=== PATIENT | male | born 1995 | race African-American/Black ===

== ENCOUNTER 2019-04-07 23:56 | Inpatient (IN) ==
[2019-04-08] MEDS ORDERED: EPINEPHrine INJ 1 MG/ML AMP ONE ×2 (00:04→01:08)
[2019-04-08] MEDS ORDERED: SODIUM CHLORIDE 0.9% 1000ML 1,000 ML IV ONE ×2 (00:08→02:16)
[2019-04-08] MEDS ORDERED: DiphenhydrAMINE HCL 50 MG/ML VIAL IV STA ×2 (00:08→01:33)
[2019-04-08] MEDS ORDERED: methylPREDNISolone 125 MG/2 ML VIAL IV STA (00:08)
[2019-04-08] MEDS ORDERED: FAMOTIDINE 20MG/5ML IV PUSH IV STA (00:08)
[2019-04-08] MEDS ORDERED: EPINEPHrine INJ 1 MG/ML AMP IM STA (01:08)
[2019-04-08 01:23] LABS: Basophils # (auto) 0.01 K/uL (0-0.2); Basophils % (auto) 0.1 %; Eosinophils % (auto) 0.8 %; Hematocrit (blood only) 41.7 % (42-52); Hemoglobin 14.1 g/dL (14.0-18.0); Immature Granulocytes # (auto) 0.02 K/uL (0.00-0.02); Immature Granulocytes % (auto) 0.2 %; Lymphocytes # (auto) 3.65 K/uL (1.2-3.4); Lymphocytes % (auto) 30.6 %; Mean Corpuscular Hemoglobin 27.6 pg (25-34); Mean Corpuscular Hgb Conc 33.8 g/dL (32-36); Mean Corpuscular Volume 81.6 fL (80-100); Mean Platelet Volume 10.5 fL (7.4-10.4); Monocytes # (auto) 1.09 K/uL (0.11-0.59); Monocytes % (auto) 9.2 %; Neutrophils # (auto) 7.04 K/uL (1.4-6.5); Neutrophils % (auto) 59.1 %; Platelet Count 280 K/uL (130-400); RDW Coefficient of Variation 14.5 % (11.5-14.5); Red Blood Count 5.11 M/uL (4.7-6.1); White Blood Count 11.91 K/uL (4.8-10.8)
[2019-04-08 01:46] LABS: Albumin Level 3.5 gm/dl (3.4-5.0); BUN Creatinine Ratio 12.1 (10-20); Calcium 8.2 mg/dl (8.5-10.1); Creatinine Clr Calc Pharmacy 117.8 ml/min; Est GFR (African American) 91.9; Est GFR (Non-African American) 79.3
[2019-04-08 01:48] LABS: Albumin Globulin Ratio 0.9 (0.9-2); Bilirubin,Total 0.4 mg/dl (0.2-1); Globulin 3.9 gm/dl (2.5-4.0); Total Protein 7.4 gm/dl (6.4-8.2)
--- NOTE | 2019-04-08 03:28 | History & Physical Report ---
Date of Service April 08, 2019 Assessment & Plan (1) Anaphylaxis: Patient with what appears to be anaphylactic reaction, trigger unknown. No prior history of allergic reaction. No new medications, dietary items or detergents. Patient hemodynamically stable at present, had one episode of low blood pressure in the ER which improved with IVF. No respiratory compromise. No evidence of airway edema. -Admit to PCU -Closely monitor respiratory status and hemodynamics -Pepcid 20mg q 6 hours -Benadryl 50mg po q 6 hours -Prednisone 40mg po daily -IVF NSS at 125mL/hr -Epinephrine PRN -Patient may benefit from followup with Allergy/Immunology on outpatient basis F/E/N - NSS at 125mL/hr, monitor electrolytes and replete as needed, will give Kdur 60 mEq PO x 1 now and repeat labs, Regular diet as tolerated Ppx - Pepcid, SCDs Code - Full Dispo - Admit to PCU Present on Admission?: Yes History of Present Illness Chief Complaint: allergic reaction Primary Care Provider: NO PCP Rai Pickett is a 23yo male presenting with anaphylactic reaction. Patient is from [place], currently in [place] visiting his girlfriend. He arrived this evening by car and was in his usual state of health until this evening when he developed severe itching. He was laying in bed with his girlfriend and he started itching his head then his whole body. His girlfriend noticed that his eyes got red and his face became swollen. He took a Benadryl and a shower prior to arrival. He did complain of some throat tightness as well. On arrival to the hospital he was found to be afebrile, tachycardic, RR of 25. He had an isolated episode of hypotension at 83/37 which improved with IVF. ER Course: Benadryl, Pepcid, Solumedrol, NSS, Epinephrin 0.5mg IM x 2 Allergies Allergy/AdvReac Type Severity Reaction Status Date / Time No Known Allergies Allergy Verified 04/08/19 00:22 Home Medications Home Medications Medication Instructions Recorded Confirmed Type No Known Home Medications 04/08/19 04/08/19 History Past Med/Surg History Medical History Migraine Surgical History History of brain surgery shunt placement Family History Other Family history of allergies in brother Social History Feels Safe at Home: Yes Smoking Status: Current some day smoker Hx Alcohol Use: Yes Hx Substance Use: No Review of Systems Review of Systems: All systems reviewed & are unremarkable except as noted in HPI & below Physical Exam Physical Exam: General: patient resting comfortably, NAD, non-toxic in appearance, AA&O x 4 Skin: warm, dry, intact, mild periorbital and facial edema HEENT: NC/AT, PERRL, EOMI, anicteric sclera, conjunctiva without injection, external ear normal to inspection and nontender, nares patent, moist mucus membranes, dentition intact, no oropharyngeal lesions, neck supple, trachea midline, no LAD, no thyromegaly, no JVD, no swelling of tongue or oral structures Heart: +S1/S2, regular, tachycardic, no m/r/g Lungs: equal air entry bilaterally, no rales/rhonchi/wheezes, no stridor Abd: +BS, soft, NT/ND, no masses/organomegaly/ascites Ext: warm, 2+ pulses in UE/LE bilaterally, no clubbing/cyanosis or edema Neuro: nonfocal, patient AA&O x 4, speech intact, no facial droop, moving all extremities on command with equal strength 5/5 Results & Data Vital Signs (Past 12 Hours) Vital Signs Temp Pulse Pulse Resp BP BP Pulse Ox 04/08/19 03:01 107 H 16 106/40 L 97 04/08/19 02:30 115 H 25 H 161/62 H 97 04/08/19 02:02 101 H 27 H 04/08/19 02:01 110 H 31 H 83/37 L 92 04/08/19 02:00 104 H 26 H 95 04/08/19 01:34 101 H 20 97 04/08/19 01:33 103 H 24 155/84 H 97 04/08/19 01:00 107 H 30 H 98 04/08/19 00:16 115 H 20 130/85 97 04/08/19 00:11 104 H 21 96 04/07/19 23:57 36.7 C 112 H 18 149/80 H 94 Laboratory Results Lab Results 04/08/19 04/08/19 Range/Units 01:16 01:16 WBC 11.91 H (4.8-10.8) K/uL RBC 5.11 (4.7-6.1) M/uL Hgb 14.1 (14.0-18.0) g/dL Hct 41.7 L (42-52) % MCV 81.6 (80-100) fL MCH 27.6 (25-34) pg MCHC 33.8 (32-36) g/dL RDW Std Deviation 43.0 (36.4-46.3) fL RDW Coeff of Jack 14.5 (11.5-14.5) % Plt Count 280 (130-400) K/uL MPV 10.5 H (7.4-10.4) fL Immature Gran % (Auto) 0.2 % Neut % (Auto) 59.1 % Lymph % (Auto) 30.6 % [place] % (Auto) 9.2 % Eos % (Auto) 0.8 % Baso % (Auto) 0.1 % Immature Gran # (Auto) 0.02 (0.00-0.02) K/uL Neut # (Auto) 7.04 H (1.4-6.5) K/uL Lymph # (Auto) 3.65 H (1.2-3.4) K/uL [place] # (Auto) 1.09 H (0.11-0.59) K/uL Eos # (Auto) 0.10 (0-0.5) K/uL Baso # (Auto) 0.01 (0-0.2) K/uL Sodium 141 (136-145) mmol/L Potassium 3.0 L (3.5-5.1) mmol/L Chloride 107 (98-107) mmol/L Carbon Dioxide 22 (21-32) mmol/L Anion Gap 12.0 H (3-11) BUN 15 (7-18) mg/dl Creatinine 1.26 (0.6-1.4) mg/dl Est Cr Clr Drug Dosing 117.8 ml/min Est GFR ( Amer) 91.9 Est GFR (Non-Af Amer) 79.3 BUN/Creatinine Ratio 12.1 (10-20) Glucose 162 H (70-99) mg/dl Calcium 8.2 L (8.5-10.1) mg/dl Total Bilirubin 0.4 (0.2-1) mg/dl AST 16 (15-37) U/L ALT 30 (12-78) U/L Alkaline Phosphatase 97 (45-117) U/L Total Protein 7.4 (6.4-8.2) gm/dl Albumin 3.5 (3.4-5.0) gm/dl Globulin 3.9 (2.5-4.0) gm/dl Albumin/Globulin Ratio 0.9 (0.9-2) Code Status & VTE Plan Code Status FULL VTE Prophylaxis Plan VTE Prophylaxis will be ordered: Yes PG Care Time/CCT Total # of Minutes Spent Total Time Spent with Patient: Total time spent is greater than 50% in coordination of care (as documented) at patient's floor/unit and/or counseling patient: (1) Anaphylaxis Encounter type: initial encounter Qualified Code(s): T78.2XXA - Anaphylactic shock, unspecified, initial encounter
[2019-04-08] MEDS ORDERED: POLYETHYLENE (MIRALAX) 17 GM PACK PO PRN (03:59)
[2019-04-08] MEDS ORDERED: ONDANSETRON INJ 2 MG/ML 2 ML VIAL IV PRN (03:59)
[2019-04-08] MEDS ORDERED: ALUMINUM/MAGNESIUM SUSP 30 ML UDC PO PRN (03:59)
[2019-04-08] MEDS ORDERED: EPINEPHRINE ADULT AUTO-INJECT 0.3 MG SYR IM PRN (03:59)
[2019-04-08] MEDS ORDERED: SODIUM CHLORIDE 0.9% 1000ML 1,000 ML IV SCH (03:59)
[2019-04-08] MEDS ORDERED: MAGNESIUM HYDROXIDE SUSP 30 ML UDC PO PRN (03:59)
[2019-04-08] MEDS ORDERED: ACETAMINOPHEN 325 MG TAB PO PRN (03:59)
--- NOTE | 2019-04-08 04:17 | Emergency Department Note ---
Entered by Jermain Lemus acting as a scribe for ED Provider Note Name: Rai Pickett Age: 23, male Arrives Via: Walk in Informant: Patient CC: Allergic Reaction HPI: The patient is a 23 year old male who presents to the emergency department with complaints of a constant allergic reaction beginning 20 minutes ago. The patient states that he started having an allergic reaction 20 minutes ago while he was having sex. He notes that he was not using a condom or any lubricant. He reports that his face is swollen and he states that he is having some mild difficulty breathing. The patient states that he has not had any allergic reactions in the past, but he reports that his brother is allergic to a lot of things. He denies any CP and leg swelling. The patient states that he took Benadryl prior to arrival. He notes that he had chicken for dinner, which he reports did not have anything unusual on it. The patient that he has a history of brain surgery. ROS: See above HPI for pertinent positives & negatives. A total of 10 systems reviewed and were otherwise negative. Past Medical History: None Past Surgical History: Brain surgery Family History: History of allergies in brother Social History: Never smoker Home Medications: None Allergies: None Physical: Vitals: BP 130/85, Pulse 115, Resp 20, Temp 98.1 F, O2 Sat 97 Exam: GENERAL: Patient is anxious appearing and in mild distress. EYES: No scleral icterus, unremarkable pupils. ENT: Mucous membranes moist, no nasal congestion. Edema of periorbital region, cheeks, and lips. No significant oropharyngeal swelling appreciated, though there is some erythema. NECK: No masses appreciated, no meningismus, trachea is midline. RESPIRATORY: No dyspnea. Equal bilaterally. no rhonchi. Mild wheezing in all lung jordan. CARDIOVASCULAR: Regular rhythm and mildly tachycardic. No murmurs, rubs, gallops appreciated. GASTROINTESTINAL: Abdomen soft, non-tender, no peritonitis. Bowel sounds positive. No masses appreciated. BACK: No midline tenderness, no CVA tenderness EXTREMITIES: Normal motion all extremities, no cyanosis, no edema. NEUROLOGIC: Alert and oriented, no acute motor or sensory deficits, no focal weakness, cranial nerves grossly intact. SKIN: No jaundice, no diaphoresis. Diffuse hives and urticaria of the body. ED Course: Prior Medical Record, Triage/Nursing Notes, Medications, Allergies reviewed by 0004: The patient was evaluated in room A2. A complete history and physical exam was performed. 0006: I spoke to the patient's mother on the phone. 0033: I reevaluated and updated the patient. He is vastly improved. He still has some mild edema around his eyes, but he had no further erythema. His breathing is comfortable and he is not in any distress. 0106: I rechecked the patient. He is becoming itchy and developing diffuse erythema and hives. He is developing increasing tachycardia. There is no change in his facial swelling. 0133: I reevaluated and updated the patient. His rash has improved, but he notes that he is still itching badly all over. 0216: I rechecked the patient. He is feeling better and is sleepy. He is moderately diaphoretic and moderately hypotensive, but he denies any symptoms. A normal saline bolus was given. 0221: The hospitalist was paged. 0249: Upon reevaluation, the patient is stable. I discussed the findings and the treatment plan with the patient. He expresses agreement and understanding. I spoke with [place]. Chew of [place] [facility]. The patient will be evaluated for further management. Vital Signs: reviewed and remarkable for HTN, tachy Labs: Reviewed and remarkable for mild hypokalemia Interventions: saline lock, epi 0.5mg IM x 2, benadryl 50mg IV x 2, Solu-Medrol 125mg IV, Pepcid 20mg IV, NSS Bolus 1 L IV x 2 Consults: 0249: I reviewed the patient's case with Dr. Chew - Hospitalist, [facility]. She will evaluate the patient for further management. Blood pressure: Elevated - Will be monitored by hospitalist Disposition: Hospitalization Differentials: Differential: Allergic Reaction, Urticaria, Anaphylaxis, Matson- Jared Syndrome, Toxic Epidermal Necrolysis, Erythema Multiforme, Cellulitis, amongst other etiologies Entertained. Medical Decision Making: Pleasant 23 yr old male with anaphylaxis with unknown cause arrives with facial swelling, wheezing and diffuse hives. Given IM epi on arrival and then benadryl/pepcid/solumedrol. Initially doing well though within an hour hives returning and some worsening thus went ahead with repeat Epi. As still itching given another dose Benadryl as his weight could tolerate and awake. He was given fluid bolus a bit afterwards as mild hypotension likely secondary to benadryl/somnolence rather than anaphylaxis, but regardless responded well to fluids and no further epi given. Labs with mild hypoK and the WBC mild elevation consistent with situation. With need for repetitive dosing epi, brief hypotension I feel that he likely will need prolonged monitored and thus hospitalist consulted. Patient in stable condition at time of their evaluation. Impression: Anaphylaxis Critical Care: I have personally spent greater than 35 minutes of critical care time in the direct management of this patient. Anaphylaxis requiring multiple doses Epinephrine and resus. This was a life/limb threatening event. This includes time spent evaluating patient, direct bedside care, chart review, placing orders, interpretation of diagnostic studies, discussion with consultants, patient, and family members, as well as other required patient management activities. This 35 minutes is in excess of all separately billable procedures. Davide Romero MD The scribe's documentation has been prepared under my direction and personally reviewed by me in its entirety. I confirm that the note above accurately reflects all work, treatment, procedures, and medical decision making performed by me. Impression & Plan Anaphylaxis Past Med/Surg History Medical History Migraine Surgical History History of brain surgery shunt placement Family History Other Family history of allergies in brother Social History Preferred Language: Romansh Communication Ability: Effective Trial Judge Required: No Beliefs That Will Affect Care: None Current Living Situation: Family Feels Safe at Home: Yes Smoking Status: Never smoker Second Hand Exposure: Yes ; Hx Alcohol Use: Yes Alcohol type: beer and hard liquor Hx Substance Use: No Results & Data Vital Signs Vital Signs - 24 hr 04/07/19 23:57 04/08/19 00:11 04/08/19 00:16 Temperature 36.7 C Temperature Source Oral Sepsis Recent Fever Within 48 Hours No Sepsis New/Unexplained Change in Mental Status No Sepsis Action Taken by Nursing No Action Required Pulse Rate 112 H 104 H Pulse Rate [Bilateral Apical] 115 H Pulse Rate from SpO2 Sensor 103 H Respiratory Rate 18 21 20 Respiratory Effort / Characteristics Non-Labored Respiratory Depth Normal Blood Pressure 149/80 H Blood Pressure [Right Arm] 130/85 Blood Pressure Mean 103 Blood Pressure Mean [Right Arm] 100 Pulse Oximetry 94 96 97 Oxygen Delivery Method Room Air Room Air 04/08/19 01:00 04/08/19 01:33 04/08/19 01:34 Temperature Temperature Source Sepsis Recent Fever Within 48 Hours Sepsis New/Unexplained Change in Mental Status Sepsis Action Taken by Nursing Pulse Rate 107 H 103 H 101 H Pulse Rate [Bilateral Apical] Pulse Rate from SpO2 Sensor 107 H 103 H 104 H Respiratory Rate 30 H 24 20 Respiratory Effort / Characteristics Respiratory Depth Blood Pressure 155/84 H Blood Pressure [Right Arm] Blood Pressure Mean 107 Blood Pressure Mean [Right Arm] Pulse Oximetry 98 97 97 Oxygen Delivery Method 04/08/19 02:00 04/08/19 02:01 04/08/19 02:02 Temperature Temperature Source Sepsis Recent Fever Within 48 Hours Sepsis New/Unexplained Change in Mental Status Sepsis Action Taken by Nursing Pulse Rate 104 H 110 H 101 H Pulse Rate [Bilateral Apical] Pulse Rate from SpO2 Sensor 104 H 107 H Respiratory Rate 26 H 31 H 27 H Respiratory Effort / Characteristics Respiratory Depth Blood Pressure 83/37 L Blood Pressure [Right Arm] Blood Pressure Mean 52 Blood Pressure Mean [Right Arm] Pulse Oximetry 95 92 Oxygen Delivery Method 04/08/19 02:30 04/08/19 03:00 04/08/19 03:01 Temperature Temperature Source Sepsis Recent Fever Within 48 Hours Sepsis New/Unexplained Change in Mental Status Sepsis Action Taken by Nursing Pulse Rate 115 H 94 H 101 H Pulse Rate [Bilateral Apical] 107 H Pulse Rate from SpO2 Sensor 113 H 94 H 102 H Respiratory Rate 25 H 25 H 23 Respiratory Effort / Characteristics Respiratory Depth Blood Pressure 161/62 H 106/40 L Blood Pressure [Right Arm] 106/40 L Blood Pressure Mean 95 62 Blood Pressure Mean [Right Arm] 62 Pulse Oximetry 97 96 98 Oxygen Delivery Method Room Air Home Medications Current Medication List: was personally reviewed by me Laboratory Data Attestation: I reviewed the patient's lab results. Result diagrams: 04/08/19 01:16 04/08/19 01:16 Lab Results 04/08/19 04/08/19 Range/Units 01:16 01:16 WBC 11.91 H (4.8-10.8) K/uL RBC 5.11 (4.7-6.1) M/uL Hgb 14.1 (14.0-18.0) g/dL Hct 41.7 L (42-52) % MCV 81.6 (80-100) fL MCH 27.6 (25-34) pg MCHC 33.8 (32-36) g/dL RDW Std Deviation 43.0 (36.4-46.3) fL RDW Coeff of Jack 14.5 (11.5-14.5) % Plt Count 280 (130-400) K/uL MPV 10.5 H (7.4-10.4) fL Immature Gran % (Auto) 0.2 % Neut % (Auto) 59.1 % Lymph % (Auto) 30.6 % [place] % (Auto) 9.2 % Eos % (Auto) 0.8 % Baso % (Auto) 0.1 % Immature Gran # (Auto) 0.02 (0.00-0.02) K/uL Neut # (Auto) 7.04 H (1.4-6.5) K/uL Lymph # (Auto) 3.65 H (1.2-3.4) K/uL [place] # (Auto) 1.09 H (0.11-0.59) K/uL Eos # (Auto) 0.10 (0-0.5) K/uL Baso # (Auto) 0.01 (0-0.2) K/uL Sodium 141 (136-145) mmol/L Potassium 3.0 L (3.5-5.1) mmol/L Chloride 107 (98-107) mmol/L Carbon Dioxide 22 (21-32) mmol/L Anion Gap 12.0 H (3-11) BUN 15 (7-18) mg/dl Creatinine 1.26 (0.6-1.4) mg/dl Est Cr Clr Drug Dosing 117.8 ml/min Est GFR ( Amer) 91.9 Est GFR (Non-Af Amer) 79.3 BUN/Creatinine Ratio 12.1 (10-20) Glucose 162 H (70-99) mg/dl Calcium 8.2 L (8.5-10.1) mg/dl Total Bilirubin 0.4 (0.2-1) mg/dl AST 16 (15-37) U/L ALT 30 (12-78) U/L Alkaline Phosphatase 97 (45-117) U/L Total Protein 7.4 (6.4-8.2) gm/dl Albumin 3.5 (3.4-5.0) gm/dl Globulin 3.9 (2.5-4.0) gm/dl Albumin/Globulin Ratio 0.9 (0.9-2) Administered Medications Discontinued Medications Diphenhydramine HCl (Benadryl) 50 mg IV NOW STA Stop: 04/08/19 00:09 Last Admin: 04/08/19 00:14 Dose: 50 mg Documented by: [id number] Diphenhydramine HCl (Benadryl) 50 mg IV NOW STA Stop: 04/08/19 01:34 Last Admin: 04/08/19 01:38 Dose: 50 mg Documented by: [id number] Epinephrine HCl (Epinephrine) Confirm Administered Dose 1 mg .ROUTE .STK-MED ONE Stop: 04/08/19 00:05 Last Admin: 04/08/19 00:06 Dose: 0.5 mg Documented by: [id number] Epinephrine HCl (Epinephrine) Confirm Administered Dose 1 mg .ROUTE .STK-MED ONE Stop: 04/08/19 01:09 Last Admin: 04/08/19 01:15 Dose: Not Given Documented by: [id number] Epinephrine HCl (Epinephrine) 0.5 mg IM NOW STA Stop: 04/08/19 01:09 Last Admin: 04/08/19 01:15 Dose: 0.5 mg Documented by: [id number] Famotidine (Pepcid 20mg Iv Push) 20 mg IV ONE STA Stop: 04/08/19 00:09 Last Admin: 04/08/19 00:14 Dose: 20 mg Documented by: [id number] Sodium Chloride (Nss 1000ml) 1,000 mls @ 999 mls/hr IV .Q1H1M ONE Stop: 04/08/19 01:08 Last Infusion: 04/08/19 01:06 Dose: 0 mls/hr Documented by: [id number] Admin: 04/08/19 00:14 Dose: 999 mls/hr Documented by: [id number] Sodium Chloride (Nss 1000ml) 1,000 mls @ 999 mls/hr IV .Q1H1M ONE Stop: 04/08/19 03:16 Last Infusion: 04/08/19 03:36 Dose: 0 mls/hr Documented by: [id number] Admin: 04/08/19 02:18 Dose: 999 mls/hr Documented by: [id number] Methylprednisolone (Solumedrol) 125 mg IV NOW STA Stop: 04/08/19 00:09 Last Admin: 04/08/19 00:14 Dose: 125 mg Documented by: [id number] Discharge Plan Visit Data *Final* Discharge Date/Time: 04/08/19 03:38 Chief Complaint: Allergic Reaction Stated Complaint: ALLERGIC REACTION,CAN'T BREATHE,RASH,ITCHINESS ED Provider: Davide Romero Discharge Problem: Anaphylaxis Patient Disposition: Admitted As Inpatient Discharge Instructions Interventions: ED Discharge Assessment Last Done: 04/08/19 03:38 Discharge Problem: Anaphylaxis Qualifiers: Encounter type: initial encounter Qualified Code(s): T78.2XXA - Anaphylactic shock, unspecified, initial encounter The scribe's documentation has been prepared under my direction and personally reviewed by me in its entirety. I confirm that the note above accurately reflects all work, treatment, procedures, and medical decision making performed by me.
[2019-04-08] MEDS ORDERED: POTASSIUM CHLORIDE 20 MEQ TABCR PO ONE (04:45)
[2019-04-08] MEDS ORDERED: FAMOTIDINE 20 MG in SYRINGE 3 ML IV SCH (05:00)
[2019-04-08 05:53] LABS: Basophils # (auto) 0.01 K/uL (0-0.2); Basophils % (auto) 0.1 %; Hematocrit (blood only) 41.7 % (42-52); Hemoglobin 14.1 g/dL (14.0-18.0); Immature Granulocytes # (auto) 0.04 K/uL (0.00-0.02); Immature Granulocytes % (auto) 0.3 %; Lymphocytes % (auto) 9.3 %; Mean Corpuscular Hemoglobin 27.9 pg (25-34); Mean Corpuscular Hgb Conc 33.8 g/dL (32-36); Mean Corpuscular Volume 82.4 fL (80-100); Mean Platelet Volume 10.6 fL (7.4-10.4); Monocytes # (auto) 0.13 K/uL (0.11-0.59); Monocytes % (auto) 0.9 %; Neutrophils # (auto) 12.52 K/uL (1.4-6.5); Neutrophils % (auto) 89.4 %; Platelet Count 267 K/uL (130-400); RDW Coefficient of Variation 14.5 % (11.5-14.5); RDW Standard Deviation 43.4 fL (36.4-46.3); Red Blood Count 5.06 M/uL (4.7-6.1)
[2019-04-08] MEDS ORDERED: DiphenhydrAMINE HCL 50 MG/ML VIAL IV SCH (06:00)
[2019-04-08 06:28] LABS: BUN Creatinine Ratio 11.9 (10-20); Calcium 8.7 mg/dl (8.5-10.1); Creatinine Clr Calc Pharmacy 124.5 ml/min; Est GFR (African American) 97.5; Est GFR (Non-African American) 84.1; Potassium 4.3 mmol/L (3.5-5.1)
[2019-04-08] MEDS ORDERED: predniSONE 20 MG TAB PO SCH (09:00)
--- NOTE | 2019-04-08 11:31 | Discharge Summary ---
Date of Service April 08, 2019 Admission HPI Per Admitting Provider Rai Pickett is a 23yo male presenting with anaphylactic reaction. Patient is from [place], currently in [place] visiting his girlfriend. He arrived this evening by car and was in his usual state of health until this evening when he developed severe itching. He was laying in bed with his girlfriend and he started itching his head then his whole body. His girlfriend noticed that his eyes got red and his face became swollen. He took a Benadryl and a shower prior to arrival. He did complain of some throat tightness as well. On arrival to the hospital he was found to be afebrile, tachycardic, RR of 25. He had an isolated episode of hypotension at 83/37 which improved with IVF. ER Course: Benadryl, Pepcid, Solumedrol, NSS, Epinephrin 0.5mg IM x 2 Admission Exam Per Admitting Provider Physical Exam Physical Exam: General: patient resting comfortably, NAD, non-toxic in appearance, AA&O x 4 Skin: warm, dry, intact, mild periorbital and facial edema HEENT: NC/AT, PERRL, EOMI, anicteric sclera, conjunctiva without injection, external ear normal to inspection and nontender, nares patent, moist mucus membranes, dentition intact, no oropharyngeal lesions, neck supple, trachea midline, no LAD, no thyromegaly, no JVD, no swelling of tongue or oral structures Heart: +S1/S2, regular, tachycardic, no m/r/g Lungs: equal air entry bilaterally, no rales/rhonchi/wheezes, no stridor Abd: +BS, soft, NT/ND, no masses/organomegaly/ascites Ext: warm, 2+ pulses in UE/LE bilaterally, no clubbing/cyanosis or edema Neuro: nonfocal, patient AA&O x 4, speech intact, no facial droop, moving all extremities on command with equal strength 5/5 Principal Diagnosis Anaphylaxis Discharge Exam Constitutional WD/WN, vitals as above Eyes PERRL, conjunctivae normal, anicteric sclerae ENMT external ear and nose normal, oropharynx normal Neck trachea midline, no thyromegaly Respiratory normal respiratory effort, lungs clear to auscultation Cardiovascular RRR, no murmur, no edema Gastrointestinal (Abdomen) normal bowel sounds, soft, nontender, no hepatosplenomegaly Musculoskeletal no cyanosis or clubbing, extremities motor strength 5/5 Skin no rashes, warm and dry Neurologic PERRL, EOMI, accommodation nl, no face palsy, no dysarthria Psychiatric A+Ox3, euthymic affect Discharge Data Allergies Allergy/AdvReac Type Severity Reaction Status Date / Time No Known Allergies Allergy Verified 04/08/19 00:22 Consultations 04/08/19 02:49 ED Decision to Admit Stat Hospital Course (1) Anaphylaxis: Patient was observed overnight at [facility] after presenting with facial swelling, wheezing and diffuse hives. Treated in the ED for anaphylaxis. The patient does not have a PMH significant for enviromental allergies or food allergies. There were no known proceeding triggers. Anaphylaxis - Admit to PCU, Closely monitored respiratory status and hemodynamics, symptoms resolved - discharged approximately 12 hours after evaluation in the ED. - Prescribed Prednisone 40 mg for 4 more days, PRN Benadryl. Supplied patient with epipen. - Advised to follow up with PCP in 5-7 days - Recommended evaluation from a strip cutting machine operator/air conditioning sheet metal installer - Red flag symptoms discussed Total Time Total Time Spent Total Time Spent (In Minutes): greater than 30 mintues Total Time Includes: Examination of the Patient, Discharge Planning, Medication Reconciliation and Communication With Other Providers Discharge Plan Discharge Items Patient Disposition: Home - Self-Care Reason For Visit: ALLERGIC REACTION,CAN'T BREATHE,RASH,ITCHINESS Discharge Diagnosis: Anaphylaxis Condition on Discharge: Good Activity: Resume your previous activity Non-emergency contact: Primary Care Provider Call non-emergency contact if: your symptoms worsen Follow-up/Referrals: PCP,NO [Primary Care Provider] - Diet: Regular Addtl Attending Provider Instructions: We recommend that you follow up with a primary care doctor within the next 5-7 days. It appears that you had a allergic reaction to an unknown trigger. The process in the outpatient will be to identify what you could be potentially allergic to. We recommend that you see a director custom in the future. In the meantime, we advise the following; 1. Prednisone 40 mg for 4 more days. This is a steroid medication that helps with allergic reactions. We also recommend take Ranitidine, an anti-acid medicine while taking prednisone, as it can be rough on your stomach. 2. We are also sending you home with a Epipen, this is a medication that you carry with you at all times and self administer in case that you have another allergic reaction. Pending Studies at Discharge: No Stand-Alone Forms: My [facility] Medications and DC Order Prescriptions: New epinephrine [EpiPen] 0.3 mg/0.3 mL auto-injector 0.3 mg IM Q3H PRN (Reason: bronchodilation) Qty: 2 RF: 0 prednisone 20 mg tablet 40 mg PO DAILY 4 Days Qty: 8 RF: 0 ranitidine HCl 75 mg tablet 150 mg PO DAILY 5 Days Qty: 10 RF: 0 No Action No Known Home Medications RF: 0 Discharge Orders: Discharge Order (Routine); Ordered 04/08/19 Ordered By: Corona Moreno/Other Patient Handouts: EpiPen Auto Injector Dc, ED Anaphylaxis General Admission Data Admit Date/Time: 04/08/19 03:05 Attending Provider: Nesha Masters Admit Provider: Nanci Cornelius Primary Care Provider: PCP,NO Other Providers: Destiny Chew Other Interventions: Discharge Summary Assessment (RN) Last Done: 04/08/19 11:30 DC Date/Time DO NOT enter until pt leaves facility: 04/08/19 14:22 Supervising Physician Co-Signing Physician Notes Resident Physician Supervision Note: I independently interviewed and examined the patient and verified the vale history and physical, reviewed labs and image studies, discussed the case with the resident Dr. Weir and agree with the findings and care plan. Resident Activity Tracking Resident Involvement: Resident Care Provided Care Provided: Adult Hospital Medicine
== END 2019-04-08 14:22 | disposition home or self-care (01) | DRG 916 ==
LOC: ED 23:56 → SUATTDRO 04-08 03:05 → 2S 04-08 03:05